=== PATIENT | male | born 1985 | race Caucasian/White ===

== ENCOUNTER 2020-05-18 14:19 | Emergency (ER) | payer SELFPAY ==
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
[2020-05-18] MEDS: carBAMazepine 200 MG Tab PO ONE (15:00)
[2020-05-18] MEDS: Lisinopril 20 MG Tab PO ONE (15:00)
[2020-05-18] MEDS: LORazepam 2 MG/ML SDV IVPUSH ONE (15:06)
[2020-05-18] MEDS: LORazepam 2 MG/ML SDV ONE (15:07)
[2020-05-18 15:15] LABS: CHLORIDE,CL 104 mmol/L (98-115); SODIUM,NA 139 mmol/L (136-145)
== END 2020-05-18 15:42 | disposition home or self-care (01) ==
LOC: KA.ED 14:19
DX: G40.909 Epilepsy, unspecified, not intractable, without status epilepticus (principal); R79.89 Other specified abnormal findings of blood chemistry; I10 Essential (primary) hypertension; Z87.891 Personal history of nicotine dependence
CPT/HCPCS: 36415; 80053; 80156; 85025; 96374; 99284-25; A9270-GY; J2060